=== PATIENT | male | born 1965 | race Caucasian/White ===

== ENCOUNTER 2017-06-13 14:35 | Emergency (ER) | payer OTHER ==
[~2017-06-13] VITALS: Ht 185.4 cm; Wt 91.5 kg
[2017-06-13] MEDS ORDERED: MOTRIN800 MG PO (17:02)
[2017-06-13] MEDS ORDERED: PERCOCET 5/31 TABLET PO (17:02)
[2017-06-13 17:24] VITALS: BP 121/82
== END 2017-06-13 17:26 | disposition home or self-care (01) ==
LOC: EME 14:35
DX: S22.31XA Fracture of one rib, right side, initial encounter for closed fracture (principal); F17.200 Nicotine dependence, unspecified, uncomplicated; W00.0XXA Fall on same level due to ice and snow, initial encounter; Z88.0 Allergy status to penicillin
CPT/HCPCS: 71101